=== PATIENT | male | born 1970 | race Caucasian/White ===

== ENCOUNTER 2018-03-01 09:11 | Inpatient (IN) | payer OTHER ==
[~2018-03-01 09:11] MED LIST: BUPI/epINEPH/KETOROLAC IU ONE; NS IV ONE; POVIDONE-IODINE 20 ML in SODIUM CL IRRIG SOLUTION 500 ML IRR ONE; ROPIVACAINE 0.2% 80 MG, EPINEPHrine 0.2 MG, KETOROLAC TROMETHAMINE 30 MG in SYRINGE 0 ML IU ONE; TRANEXAMIC ACID IV ONE
[2018-03-01] MEDS ORDERED: ceFAZolin 2 GM/SWFI 2 GM/20 ML SYR IVP ONE (09:50)
[2018-03-01] MEDS ORDERED: FAMOTIDINE 20 MG TAB PO ONE (09:50)
[2018-03-01] MEDS ORDERED: GABAPENTIN 300 MG CAP PO ONE (09:50)
[2018-03-01] MEDS ORDERED: DEXAMETHASONE 4 MG/ML VIAL IVP ONE (09:50)
[2018-03-01] MEDS ORDERED: ACETAMINOPHEN 325 MG TAB PO ONE (09:50)
[2018-03-01] MEDS ORDERED: ONDANSETRON 4 MG/2 ML VIAL IVP ONE (09:50)
[2018-03-01] MEDS ORDERED: LR 1,000 ML IV ONE (09:51)
[2018-03-01] MEDS ORDERED: LIDOCAINE 1% 2 ML INJ ID PRN (09:51)
[2018-03-01] MEDS ORDERED: ceFAZolin 1 GM/5 ML SYR ONE (10:33)
--- NOTE | 2018-03-01 12:06 | PDHPUP ---
History & Physical Update H&P update statement: This history and physical update is based on an assessment of the patient which was completed after admission or registration (within 24 hours), but prior to the surgery/procedure. H&P update: H&P reviewed & patient examined
[2018-03-01] MEDS ORDERED: MIDAZOLAM 2 MG/2 ML VIAL IVP ONE (12:27)
--- NOTE | 2018-03-01 12:27 | PDANEPAE ---
ANE History of Present Illness left hip OA ANE Past Medical History - Cardiovascular History Hx Hypertension: No Hx Arrhythmias: No Hx Chest Pain: No Hx Coronary Artery / Peripheral Vascular Disease: No Hx CHF / Valvular Disease: No Hx Palpitations: No - Pulmonary History Hx COPD: No Hx Asthma/Reactive Airway Disease: No Hx Recent Upper Respiratory Infection: No Hx Oxygen in Use at Home: No Hx Sleep Apnea: No Sleep Apnea Screening Result - Last Documented: Negative - Neurologic History Hx Cerebrovascular Accident: No Hx Seizures: No Hx Dementia: No - Endocrine History Hx Diabetes: No Hypothyroid: Yes - Renal History Hx Renal Disorders: No - Liver History Hx Hepatic Disorders: No - Neurological & Psychiatric Hx Hx Neurological and Psychiatric Disorders: Yes Neurological / Psychiatric History Comment: Left thumb numb - Cancer History Hx Cancer: No - Congenital Disorder History Hx Congenital Disorders: No - GI History Hx Gastrointestinal Disorders: No - Other Health History Other Health History: none - Chronic Pain History Chronic Pain: Yes (bilat condomalasia) - Surgical History Prior Surgeries: R SHOULDER 03/07 ANE Review of Systems Review of systems is: negative Review of Systems: - Exercise capacity Exercise capacity: >=4 METS METS (RN): 6 METS ANE Patient History - Allergies Allergies/Adverse Reactions: No Known Allergies Allergy (Verified 02/10/18 15:38) - Home Medications Home Medications: Herbals/Supplements -Info Only 1 ea PO DAILY 02/07/18 [Last Taken 02/22/18] Levothyroxine [Synthroid 125 mcg (*)] 125 mcg PO DAILY06 02/07/18 [Last Taken 01:00] Multivitamins [Multivitamin (*)] 1 each PO DAILY 02/07/18 [Last Taken 02/22/18] - NPO status NPO Status: no food or drink >8 hours NPO Since - Liquids (Date): 03/01/18 NPO Since - Liquids (Time): 06:45 NPO Since - Solids (Date): 02/28/18 NPO Since - Solids (Time): 18:00 - Anes Hx Anes Hx: no prior problems Hx Anesthesia Complications (with details): pain in LB following epidural - Smoking Hx Smoking Status: Never smoked - Alcohol Use Alcohol Use: Occasionally - Family Anes Hx Family Anes Hx: none Family Hx Anesthesia Complications: NONE ANE Labs/Vital Signs - Vital Signs Vital Signs: reviewed preoperatively; see RN documention for details Blood Pressure: 132/89 Heart Rate: 62 Respiratory Rate: 16 O2 Sat (%): 98 Height: 172.72 cm Weight: 77.111 kg ANE Physical Exam - Airway Neck exam: FROM Mallampati Score: Class 2 Mouth exam: normal dental/mouth exam - Pulmonary Pulmonary: no respiratory distress - Cardiovascular Cardiovascular: regular rate and rhythym - ASA Status ASA Status: II ANE Anesthesia Plan Anesthesia Plan: spinal
[2018-03-01] MEDS ORDERED: MIDAZOLAM 2 MG/2 ML VIAL ONE (12:38)
[2018-03-01] MEDS ORDERED: BUPIVACAINE 0.5% 30 ML SDV ONE (12:41)
[2018-03-01] MEDS ORDERED: PROPOFOL/EMULSION 500 MG/50 ML BOTTLE IV ONE ×2 (12:42→13:34)
[2018-03-01] MEDS ORDERED: LIDOCAINE 2% 5 ML SDV ONE (12:42)
[2018-03-01] MEDS ORDERED: fentaNYL 100 MCG/2 ML INJ ONE ×2 (13:06→13:18)
[2018-03-01] MEDS ORDERED: PROPOFOL 200 MG/20 ML VIAL ONE (14:44)
--- NOTE | 2018-03-01 14:45 | POSTOPPROG ---
Post Op Note Date of Operation: 03/01/18 Surgeon: Tyron Roth Finished Cloth Examiner: Carolina/Patrizia/Milan Anesthesiologist: Dr. Enrrique Mallory Anesthesia: IV Sedation, Spinal Post-op Diagnosis: Left hip degenerative arthritis Procedure: Left hip [place] hip resurfacing arthroplasty Inf/Abcess present in the surg proc area at time of surgery?: No EBL: [id number]
[2018-03-01] MEDS ORDERED: LACTULOSE 20 GM/30 ML UDCUP PO PRN (14:56)
[2018-03-01] MEDS ORDERED: TEMAZEPAM 15 MG CAP PO PRN (14:56)
[2018-03-01] MEDS ORDERED: BISACODYL 10 MG SUPP PR PRN (14:56)
[2018-03-01] MEDS ORDERED: ONDANSETRON DISINTEGRATING 4 MG TAB PO PRN (14:56)
[2018-03-01] MEDS ORDERED: diphenhydrAMINE 25 MG CAP PO PRN (14:56)
[2018-03-01] MEDS ORDERED: NS 500 ML IV PRN (14:56)
[2018-03-01] MEDS ORDERED: METOCLOPRAMIDE 10 MG/2 ML VIAL IVP PRN (14:56)
[2018-03-01] MEDS ORDERED: DIPHENOXYLATE/ATROPINE LOMOTIL 1 TAB PO PRN (14:56)
[2018-03-01] MEDS ORDERED: PROMETHAZINE HCL 25 MG/ML INJ IVP PRN ×2 (14:56→14:58)
[2018-03-01] MEDS ORDERED: CYCLOBENZAPRINE 10 MG TAB PO PRN (14:56)
[2018-03-01] MEDS ORDERED: ONDANSETRON 4 MG/2 ML VIAL IVP PRN ×2 (14:56→14:58)
[2018-03-01] MEDS ORDERED: POLYETHYLENE GLYCOL 3350 17 GM PKT PO PRN (14:56)
[2018-03-01] MEDS ORDERED: MAGNESIUM HYDROXIDE 30 ML UDCUP PO PRN (14:56)
[2018-03-01] MEDS ORDERED: PROMETHAZINE HCL 25 MG SUPPR PR PRN (14:56)
[2018-03-01] MEDS ORDERED: oxyCODONE IR 5 MG TAB PO PRN (14:58)
[2018-03-01] MEDS ORDERED: fentaNYL 100 MCG/2 ML INJ IVP PRN (14:58)
[2018-03-01] MEDS ORDERED: MEPERIDINE 25 MG/ML SYR IVP PRN (14:58)
[2018-03-01] MEDS ORDERED: HYDROCODONE/APAP 5/325 TAB PO PRN (14:58)
[2018-03-01] MEDS ORDERED: NALOXONE HCL 0.4 MG/ML INJ IVP PRN (14:58)
[2018-03-01] MEDS ORDERED: HYDROmorphONE/DILAUDID 1 MG/ML INJ IVP PRN (14:58)
[2018-03-01] MEDS ORDERED: DIAZEPAM 5 MG/ML 1 ML SYR IVP PRN (14:58)
[2018-03-01] MEDS ORDERED: ACETAMINOPHEN 500 MG TAB PO PRN (14:58)
[2018-03-01] MEDS ORDERED: ALBUTEROL 3 ML DEYVIAL IH PRN (14:58)
[2018-03-01] MEDS ORDERED: LR 1,000 ML IV SCH (15:00)
--- NOTE | 2018-03-01 15:00 | POSTANESTH ---
Post Anesthetic Evaluation Cardiovascular Status: Normal, Stable Respiratory Status: Normal, Stable Level of Consciousness/Mental Status: Can Participate in Eval Pain Control: Adequate, Prn Tx Ordered Nausea/Vomiting Control: Adequate, Prn Tx Ordered Complications Possibly Related to Anesthesia: None Noted
--- NOTE | 2018-03-01 15:32 | GOP ---
[f rep st] OPERATIVE REPORT DATE OF OPERATION: 03/01/2018 SURGEON: Tyron Roth MD PUPPY TRAINER: Steven Figueroa [facility]. Don Acharya MD. Juan Yates, PAC. ANESTHESIA: Combination of Marcaine, spinal, and IV sedation. ANESTHESIOLOGIST: Enrrique Mallory MD. PREOPERATIVE DIAGNOSIS: Left hip, degenerative arthritis. POSTOPERATIVE DIAGNOSIS: Left hip, degenerative arthritis. PROCEDURE PERFORMED: A left hip [place] hip-resurfacing arthroplasty. FINDINGS: DESCRIPTION OF PROCEDURE: The patient was given 2 g of IV Ancef within 60 minutes of surgery. He al so received IV tranexamic acid at a dose of 20 mg/kg. He was placed on the operating room table and given spinal anesthesia with Marcaine by Dr. Mallory. He was then placed supine and given IV sedati on. A Contreras catheter was not used. He wore a compressive stocking and SCD on the nonoperative leg. He was rolled to the right lateral decubitus position. An axillary roll was used, and all pressure points were padded. The position was secured with the pegboard table attachment. I was careful to l ock his pelvis in a vertical position. His perineum was isolated with plastic adhesive drapes. His left hip and left lower extremity were prepped with ChloraPrep. They were draped free using sterile sheets, stockinette, and Ioban plastic drapes. The World Health Organization time-out was performed to verify the correct patient identity and the correct surgical side and site. The [place] time-out was also performed. I made a 6-inch straight oblique posterolateral hip skin incision. The subcutaneous tissues were sha rply divided and hemostasis was obtained using electrocautery. His fascia clint was identified and sp lit along the axis of its fibers. I then curved posteriorly and proximally, and split the fascia of the gluteus eva and bluntly split the muscle fibers in line with their orientation. His sciatic nerve was identified and protected throughout the procedure. The Charnley self-retaining retractor w as inserted. The external rotators and the posterior hip capsule were divided as separate layers at the base of the femoral neck, tagged, and reflected posteriorly. The gluteus eva tendon was divided and tagged in order to improve exposure and release tension on the sciatic nerve. His hip was dislocated posteriorly. I used a sizing gauge to check the diameter of the neck and concluded that 50 mm was the proper head size. I performed a complete circumferenti al capsulotomy. I was able to retract the femoral head anteriorly and superiorly and hold it out of place with appropriate retractors. The remnant of his damaged labrum was excised. His acetabulum wa s reamed sequentially up to 56 mm. I selected the Rickie monoblock porous-coated acetabular comp onent with an outside diameter of 56 mm. This was firmly impacted and was a very tight fit. I was c areful to determine proper inclination and anteversion. I used the transverse acetabular ligament an d other acetabular bony landmarks to help me properly orient the cup. I was careful to leave a good lip of bone and capsule extending beyond the anterior-inferior lip of the metal cup. I then returned to preparation of the femoral head. Using appropriate jigs and guides, I inserted a guide pin into the femoral head and neck. I was careful to position in such a way there would be no notching of the neck. The large sterile metal goniometer was used to check the neck-shaft angle. I reamed over the guide pin and inserted the reaming guide. I then used the cylindrical reamer down to the head and neck junction. This was followed by the flat reamer and the chamfer reamer. The head was sized for 50 mm. There was no impingement or damage to the neck. I drilled a small hole in the lesser trochanter and inserted a suction cannula to create negative pressure in the medullary canal. Small holes were drilled on the flat and chamfer surfaces of the prepared head for cement anchors. The head was thoroughly cleaned with the pulsating lavage irrigation and carefully dried. I used a C arboJet device to blow dry the cancellous surfaces. A single batch of Simplex cement with tobramycin was mixed. At about 50 seconds, I poured the liquid cement into the head component, inserted it ont o the prepared femoral head, and impacted it into place. Excess cement was removed before it hardene d. The acetabulum was irrigated, cleaned, and inspected, and the hip was reduced. Stability and range o f motion were checked. I placed my finger along the anterior aspect of the acetabular component and flexed the hip to 110 degrees. There was no anterior impingement. The suction cannula in the lesser trochanter was removed. The wound was thoroughly irrigated with a dilute Betadine solution. 40 mL of the joint anesthetic cocktail were injected into the capsule, the deep musculature, and the subcut aneous tissues along the skin edges. His sciatic nerve was reinspected and looked unharmed. The external rotators and the posterior hip capsule were repaired in separate layers with #2 FiberWir e sutures through drill holes in the greater trochanter. The gluteus eva tendon was repaired wit h two interrupted [id number] #2 FiberWire sutures. His fascia clint was repaired first with 2 in terrupted [id number]-[id number] #2 FiberWire sutures followed by a running #2 barbed Ethicon Stratafix PDO suture. The subcutaneous tissues were closed with a running 0 barbed Ethicon Stratafix Monoderm sutu re. The skin was closed with a running 3-0 barbed Ethicon Stratafix Monoderm subcuticular suture. T he skin edges were reapproximated and sealed with Dermabond glue. The wound was covered with a large sterile Mepilex water-proof dressing. The estimated blood loss was about 400 mL. I used the TalkSession hip resurfacing system. The acetabular component was 56 mm in diameter and press-fit. The femor al head was 50 mm and cemented. He was awakened from anesthesia and rolled to the supine position on his hospital [facility]. A long-leg compressive stocking and SCD were applied to the operative leg. He wore a stocking and SCD on the o pposite leg during the procedure. An abduction pillow was placed between his knees. He was awakened from anesthesia, transferred to his hospital [facility], and taken to PACU in satisfactory condition. T here were no recognized intraoperative complications. The sponge and needle count were correct on [address] Steven Figueroa, Dr. Don Acharya, and Rosalino Yates acted as surgical assistants. Their assistanc e was a medical necessity for safe completion of the procedure. SURGEON: Tyron Roth MD. /[id number]/MODL
[2018-03-01] MEDS: ACETAMINOPHEN 325 MG TAB PO SCH ×2 (18:11→22:40)
[2018-03-01] MEDS: KETOROLAC 30 MG/1 ML SDV IVP PRN (19:43)
[2018-03-01] MEDS: TRANEXAMIC ACID 650 MG TAB PO SCH (19:46)
[2018-03-01] MEDS: oxyCODONE IR 5 MG TAB PO PRN ×2 (20:53→22:41)
[2018-03-01] MEDS: SENNOSIDES/DOCUSATE SODIUM TAB PO SCH (20:53)
[2018-03-01] MEDS: ASPIRIN 325 MG TAB PO SCH (20:54)
[2018-03-01] MEDS: FAMOTIDINE 20 MG TAB PO SCH (20:54)
[2018-03-01] MEDS: ceFAZolin 2 GM/SWFI 2 GM/20 ML SYR IVP SCH (20:55)
[2018-03-02] MEDS: oxyCODONE IR 5 MG TAB PO PRN ×3 (01:58→12:28)
[2018-03-02] MEDS: traMADol 50 MG TAB PO PRN ×2 (04:06→11:01)
[2018-03-02] MEDS: KETOROLAC 30 MG/1 ML SDV IVP PRN ×2 (04:09→11:01)
[2018-03-02] MEDS: TRANEXAMIC ACID 650 MG TAB PO SCH ×2 (05:26→12:27)
[2018-03-02] MEDS: ceFAZolin 2 GM/SWFI 2 GM/20 ML SYR IVP SCH (05:30)
[2018-03-02] MEDS: ACETAMINOPHEN 325 MG TAB PO SCH ×2 (05:31→12:27)
[2018-03-02] MEDS ORDERED: LEVOTHYROXINE 125 MCG TAB PO SCH (06:00)
--- NOTE | 2018-03-02 08:36 | PDMN ---
Medical Necessity Medical necessity: S565 hip resurfacing 2 days: L hip [place] hip resurfacing arthroplasty
[2018-03-02] MEDS: ASPIRIN 325 MG TAB PO SCH (09:16)
[2018-03-02] MEDS: SENNOSIDES/DOCUSATE SODIUM TAB PO SCH (09:16)
[2018-03-02] MEDS: FAMOTIDINE 20 MG TAB PO SCH (09:16)
--- NOTE | 2018-03-02 09:41 | SOAPPROG ---
SOAP Progress Note Assessment/Plan: Assessment: Afebrile. Awake and alert. Has been walking in room. Voiding well. H/H is good. Sciatic nerve intact. Films look good. Plan:Up with PT today. Home to [place] later today. 03/02/18 09:40 Objective: Vital Signs Temp Pulse Resp BP Pulse Ox 36.7 C 57 L 12 95/58 L 93 03/02/18 07:34 03/02/18 07:34 03/02/18 07:34 03/02/18 07:34 03/02/18 07:34 Laboratory Results 03/02/18 04:21 03/01/18 03/02/18 03/03/18 05:59 05:59 05:59 Intake Total 1660 Output Total 2300 Balance -640 ICD10 Worksheet Patient Problems: Problems Problem Status Onset Osteoarthritis of left hip Acute
--- NOTE | 2018-03-02 10:01 | GDS ---
[f rep st] DISCHARGE SUMMARY ADMISSION DIAGNOSIS: Left hip advanced degenerative arthritis. DISCHARGE DIAGNOSIS: Left hip advanced degenerative arthritis. OPERATIONS PERFORMED: 03/01/2018, a left hip [place] hip resurfacing arthroplasty. POSTOPERATIVE COMPLICATIONS: None. CONDITION ON DISCHARGE: Improved. DESCRIPTION OF HOSPITAL COURSE: The patient was admitted to the hospital the morning of surgery. Hi s admission CBC was normal. The same day, under a combination of Marcaine, spinal, and IV sedation, he underwent a left hip [place] hip resurfacing arthroplasty. Postoperatively, he was treated wit h multimodal DVT prophylaxis, including aspirin and early mobilization. On the first postoperative d ay, his hemoglobin and hematocrit were 13.4 and 38.5. He was seen by Physical Therapy and made good progress with ambulation and stairs. By the time of discharge, he was afebrile, his wound was dry, a nd he was independent walking. DISPOSITION: Patient is discharged to his home in [place]. He may progress to full weightbearing on t he left as tolerated. Use MONICA stockings for 1 week. Use an abduction pillow in bed for 3 weeks. Co ntinue aspirin 325 mg p.o. daily for 21 days. He has prescriptions for oxycodone, tramadol, and Makeda brex for pain. I will see him back in the office in 3 weeks. If there are any problems, he is to ca ll me at the office. Copy requested to: Nicik CHAHAL /[id number]/MODL
[2018-03-02 12:17] VITALS: BP 125/80
--- NOTE | 2018-03-02 12:18 | ASMTCMCOM ---
CM Note CM Note Notes: PT rec home/outpatient. Pt medically stable for d/c with family support, no CM d/c needs identified. Date Signed: 03/02/2018 12:17 PM Electronically Signed By:AIDE Steward
== END 2018-03-02 12:53 | disposition home or self-care (01) | DRG 470 ==
LOC: F3N 09:11
PROVIDERS: ADMIT Orthopaedic Surgery; ATTEND Orthopaedic Surgery
PROC: 0SR Lower Joints, Replacement (ICD-10-PCS; principal; 2018-03-01 11:15)
DX: M16.12 Unilateral primary osteoarthritis, left hip (principal); E03.9 Hypothyroidism, unspecified
CPT/HCPCS: 97161-GP; 97165-GO; C1713; J0171; J0690; J1100; J1885; J2250; J2270; J2405; J2704; J3010

== ENCOUNTER → 2018-09-15 | Outpatient (CLI) | payer OTHER ==
[~2018-09-15] MED LIST changes: -BUPI/epINEPH/KETOROLAC IU ONE; +BUPIVACAINE 0.25% 30 ML SDV ONE; +LIDOCAINE 1% 300 MG/30 ML SDV ONE; -NS IV ONE; -POVIDONE-IODINE 20 ML in SODIUM CL IRRIG SOLUTION 500 ML IRR ONE; -ROPIVACAINE 0.2% 80 MG, EPINEPHrine 0.2 MG, KETOROLAC TROMETHAMINE 30 MG in SYRINGE 0 ML IU ONE; -TRANEXAMIC ACID IV ONE
== END ==
LOC: FIMAGING 12:57
PROVIDERS: ATTEND Orthopaedic Surgery
PROC: 0S9B3ZZ Drainage of Left Hip Joint, Percutaneous Approach (ICD-10-PCS; principal; 2018-09-15)
DX: G89.18 Other acute postprocedural pain (principal); Z96.642 Presence of left artificial hip joint

== ENCOUNTER → 2018-10-06 | Outpatient (CLI) | payer OTHER ==
[~2018-10-06] MED LIST changes: +DEPO METHYLPREDNISOLONE 40 MG/ML SDV ONE
== END ==
LOC: FIMAGING 09:10
PROVIDERS: ATTEND Orthopaedic Surgery
DX: M16.12 Unilateral primary osteoarthritis, left hip (principal)
CPT/HCPCS: J1030

== ENCOUNTER 2019-01-10 08:00 | Inpatient (IN) | payer OTHER ==
--- NOTE | 2019-01-09 17:11 | GHP ---
[f rep st] PREOP HISTORY AND PHYSICAL DATE OF ADMISSION: 01/10/2019 PROBLEM: Failed left hip resurfacing arthroplasty. DESCRIPTION OF HOSPITAL COURSE: The patient is a 48-year-old male who will be [facility] 10, [facility], for a planned conversion of his left hip resurfacing arthroplasty to a total hip arthroplasty. The patient originally had hip resurfacing surgery on March 01, 2018. After abou t 6 months, the patient had increased pain and swelling with elevated cobalt and chromium levels. An MRI also showed extensive fluid collection around the hip, suggesting that the soft tissues were bozena cting to the metal ions. Because of his persistent pain and swelling, the patient has elected to pro ceed with the conversion. His health remains unchanged since his last preoperative visit and surgery in February of 2018. PAST MEDICAL HISTORY: Pertinent for polymyalgia rheumatica, hypertension, thyroid disorder, and arth ritis. No history of DVT, PE, hepatitis, or CAD. MEDICATIONS: Levothyroxine 125 mcg daily and prednisone variable dose daily. MEDICATION ALLERGIES: No known drug allergies. SOCIAL HISTORY: The patient is . He lives in [place], [place] and is a electrical solderer at [employer]. His activities include cycling, walking, hiking, skiing, snowboarding, strength tra ining and Pilates. He is and a nonsmoker. FAMILY HISTORY: Noncontributory. PHYSICAL EXAMINATION: VITALS: Height 5 feet 8 inches tall, weight 180 pounds, BMI 27.4. GENERAL: He is an otherwise healthy-appearing 48-year-old male. HEENT: Head is normocephalic, atraumatic. Eyes are PERRLA. Conjunctivae and sclerae are clear. Mo uth, he has good oral hygiene without any loose teeth. LUNGS: Clear. HEART: Regular rate and rhyt hm without murmurs, gallops, or rubs. EXTREMITIES: Pertinent findings are limited to the patient's left hip. He has a well-healed surgical incision. The surrounding soft tissues are mildly swollen w ithout erythema or ecchymosis. No drainage. He has full hip extension, 130 degrees of hip flexion, 45 degrees of external rotation, and 20 degrees of internal rotation. 50 degrees of abduction. DIAGNOSTIC IMAGING: Recent x-rays of the patient's left hip do not show any bony or structural abnor malities. An MRI from August of 2018 shows a localized fluid collection around his trochanteric bur sa. IMPRESSION: Failed left hip [place] hip resurfacing. PLAN: The plan will be for the patient to undergo a left hip revision surgery with conversion of the femoral component. The preoperative plan is to leave his acetabular component as is. The surgery h as been described to the patient including the risks, benefits, and expectations. He understands the risk of DVT, PE, sciatic nerve injury, heart attack, or possibly even . All his questions have been answered. He consents to surgery here in the office today. Copy requested to: KOSTA /[id number]/MODL
[~2019-01-10 08:00] MED LIST changes: -BUPIVACAINE 0.25% 30 ML SDV ONE; -DEPO METHYLPREDNISOLONE 40 MG/ML SDV ONE; -LIDOCAINE 1% 300 MG/30 ML SDV ONE; +POVIDONE-IODINE 20 ML in SODIUM CL IRRIG SOLUTION 500 ML IRR ONE; +ROPIVACAINE 0.2% 80 MG, EPINEPHrine 0.2 MG, KETOROLAC TROMETHAMINE 30 MG in SYRINGE 0 ML IU ONE; +TRANEXAMIC ACID 1,000 MG in NS 100 ML IV ONE; +TRANEXAMIC ACID 3,000 MG in NS (SYRINGE) 50 ML IRR ONE; +ceFAZolin 2 GM/DEXTROSE 100 ML IV ONE
[2019-01-10] MEDS ORDERED: DEXAMETHASONE 4 MG/ML VIAL IVP ONE (08:13)
[2019-01-10] MEDS ORDERED: ACETAMINOPHEN 325 MG TAB PO ONE (08:13)
[2019-01-10] MEDS ORDERED: ONDANSETRON 4 MG/2 ML VIAL IVP ONE (08:13)
[2019-01-10] MEDS ORDERED: GABAPENTIN 300 MG CAP PO ONE (08:13)
[2019-01-10] MEDS ORDERED: FAMOTIDINE 20 MG TAB PO ONE (08:13)
[2019-01-10] MEDS ORDERED: LR 1,000 ML IV ONE (08:14)
[2019-01-10] MEDS ORDERED: LIDOCAINE 1% 2 ML INJ ID PRN (08:14)
[2019-01-10] MEDS ORDERED: TRANEXAMIC ACID 3,000 MG/50 ML BAG IRR ONE (08:42)
[2019-01-10] MEDS ORDERED: ceFAZolin 1 GM/5 ML SYR ONE (08:42)
--- NOTE | 2019-01-10 09:20 | POSTOPPROG ---
Post Op Note Date of Operation: 01/10/19 Surgeon: Tyron Roth Certified Medical Dosimetrist: Vandana Anesthesiologist: Marilyn Anesthesia: IV Sedation, Spinal Post-op Diagnosis: Right hip severe degenerative arthritis Procedure: Right hip [place] hip resurfacing arthroplasty Inf/Abcess present in the surg proc area at time of surgery?: No EBL: [id number]
[2019-01-10] MEDS ORDERED: MIDAZOLAM 2 MG/2 ML VIAL IVP ONE (09:46)
--- NOTE | 2019-01-10 09:46 | PDANEPAE ---
ANE History of Present Illness left hip pain, here for LTHA ANE Past Medical History - Cardiovascular History Hx Hypertension: No Hx Arrhythmias: No Hx Chest Pain: No Hx Coronary Artery / Peripheral Vascular Disease: No Hx CHF / Valvular Disease: No Hx Palpitations: No - Pulmonary History Hx COPD: No Hx Asthma/Reactive Airway Disease: No Hx Recent Upper Respiratory Infection: No Hx Oxygen in Use at Home: No Hx Sleep Apnea: No Sleep Apnea Screening Result - Last Documented: Negative - Neurologic History Hx Cerebrovascular Accident: No Hx Seizures: No Hx Dementia: No - Endocrine History Hx Diabetes: No Endocrine History Comment: KONSTANTIN'S - Renal History Hx Renal Disorders: No - Liver History Hx Hepatic Disorders: No - Neurological & Psychiatric Hx Hx Neurological and Psychiatric Disorders: No Neurological / Psychiatric History Comment: Left thumb numb - Cancer History Hx Cancer: No - Congenital Disorder History Hx Congenital Disorders: No - GI History Hx Gastrointestinal Disorders: No - Other Health History Other Health History: PMR W/HIP PAIN - Chronic Pain History Chronic Pain: No - Surgical History Prior Surgeries: L HIP MARILYN. JED SHOULDER 03/07. R WRIST. JED KNEES ANE Review of Systems Review of Systems: - Exercise capacity METS (RN): 5 METS ANE Patient History - Allergies Allergies/Adverse Reactions: No Known Allergies Allergy (Verified 02/10/18 15:38) - Home Medications Home Medications: Herbals/Supplements -Info Only 1 ea PO DAILY 02/07/18 [Last Taken 02/22/18] Levothyroxine [Synthroid 125 mcg (*)] 125 mcg PO DAILY06 02/07/18 [Last Taken 01:00] Multivitamins [Multivitamin (*)] 1 each PO DAILY 02/07/18 [Last Taken 02/22/18] predniSONE 5 mg PO DAILY 12/22/18 [Last Taken Unknown] Naproxen Sodium [Aleve 220 MG (*)] 220 mg PO BID PRN 12/29/18 [Last Taken Unknown] - NPO status NPO Since - Liquids (Date): 01/10/19 NPO Since - Liquids (Time): 06:30 NPO Since - Solids (Date): 01/09/19 NPO Since - Solids (Time): 19:30 - Smoking Hx Smoking Status: Never smoked - Family Anes Hx Family Hx Anesthesia Complications: NONE ANE Labs/Vital Signs - Vital Signs Blood Pressure: 123/77 Heart Rate: 71 Respiratory Rate: 18 O2 Sat (%): 99 Height: 172.72 cm Weight: 77.111 kg ANE Physical Exam - Airway Neck exam: FROM Mallampati Score: Class 2 Mouth exam: normal dental/mouth exam - Pulmonary Pulmonary: no respiratory distress, no rales or rhonchi - Cardiovascular Cardiovascular: regular rate and rhythym, no murmur, rub, or gallop - ASA Status ASA Status: II ANE Anesthesia Plan Anesthesia Plan: GA with mask, spinal Total IV Anesthesia: Yes
[2019-01-10] MEDS ORDERED: MIDAZOLAM 2 MG/2 ML VIAL ONE (09:47)
[2019-01-10] MEDS ORDERED: LIDOCAINE 2% 100 MG/5 ML SYR ONE (09:52)
[2019-01-10] MEDS ORDERED: DEXAMETHASONE 4 MG/ML VIAL ONE (09:52)
[2019-01-10] MEDS ORDERED: BUPIVACAINE/DEXTROSE 7.5MG/ML 2 ML SPINAL AMP SP ONE (09:52)
[2019-01-10] MEDS ORDERED: ONDANSETRON 4 MG/2 ML VIAL ONE (09:52)
[2019-01-10] MEDS ORDERED: PROPOFOL/EMULSION 500 MG/50 ML BOTTLE IV ONE ×2 (09:53→10:59)
[2019-01-10] MEDS ORDERED: fentaNYL 100 MCG/2 ML INJ ONE (09:53)
[2019-01-10] MEDS ORDERED: PROPOFOL 200 MG/20 ML VIAL ONE (12:09)
--- NOTE | 2019-01-10 12:24 | POSTOPPROG ---
Post Op Note Date of Operation: 01/10/19 Surgeon: Tyron Roth Ski Binding Fitter And Repairer: Vandana Anesthesiologist: Marilyn Anesthesia: IV Sedation, Spinal Post-op Diagnosis: Failed BHR Procedure: Conversion of BHR to MARILYN Inf/Abcess present in the surg proc area at time of surgery?: No EBL: 100-500
[2019-01-10] MEDS ORDERED: oxyCODONE IR 5 MG TAB PO PRN ×2 (12:29→12:39)
[2019-01-10] MEDS ORDERED: DIAZEPAM 5 MG/ML 1 ML SYR IVP PRN (12:29)
[2019-01-10] MEDS ORDERED: ACETAMINOPHEN 500 MG TAB PO PRN (12:29)
[2019-01-10] MEDS ORDERED: fentaNYL 100 MCG/2 ML INJ IVP PRN (12:29)
[2019-01-10] MEDS ORDERED: MEPERIDINE 25 MG/0.5 ML AMP IVP PRN (12:29)
[2019-01-10] MEDS ORDERED: LR 500 ML IV PRN (12:29)
[2019-01-10] MEDS ORDERED: NALOXONE HCL 0.4 MG/ML INJ IVP PRN (12:29)
[2019-01-10] MEDS ORDERED: HYDROmorphONE/DILAUDID 2 MG/ML INJ IVP PRN (12:29)
[2019-01-10] MEDS ORDERED: CYCLOBENZAPRINE 10 MG TAB PO PRN (12:39)
[2019-01-10] MEDS ORDERED: TEMAZEPAM 15 MG CAP PO PRN (12:39)
[2019-01-10] MEDS ORDERED: BISACODYL 10 MG SUPP PR PRN (12:39)
[2019-01-10] MEDS ORDERED: METOCLOPRAMIDE 10 MG/2 ML VIAL IVP PRN (12:39)
[2019-01-10] MEDS ORDERED: DIPHENOXYLATE/ATROPINE LOMOTIL 1 TAB PO PRN (12:39)
[2019-01-10] MEDS ORDERED: MAGNESIUM HYDROXIDE 30 ML UDCUP PO PRN (12:39)
[2019-01-10] MEDS ORDERED: diphenhydrAMINE 25 MG CAP PO PRN (12:39)
[2019-01-10] MEDS ORDERED: POLYETHYLENE GLYCOL 3350 17 GM PKT PO PRN (12:39)
[2019-01-10] MEDS ORDERED: LACTULOSE 20 GM/30 ML UDCUP PO PRN (12:39)
[2019-01-10] MEDS ORDERED: traMADol 50 MG TAB PO PRN (12:39)
[2019-01-10] MEDS ORDERED: ONDANSETRON 4 MG/2 ML VIAL IVP PRN (12:39)
[2019-01-10] MEDS ORDERED: PROMETHAZINE HCL 25 MG SUPPR PR PRN (12:39)
[2019-01-10] MEDS ORDERED: NS 500 ML IV PRN (12:39)
[2019-01-10] MEDS ORDERED: ONDANSETRON DISINTEGRATING 4 MG TAB PO PRN (12:39)
[2019-01-10] MEDS ORDERED: PROMETHAZINE HCL 25 MG/ML INJ IVP PRN (12:39)
[2019-01-10] MEDS ORDERED: LR 1,000 ML IV SCH (13:00)
--- NOTE | 2019-01-10 13:18 | GOP ---
[f rep st] OPERATIVE REPORT DATE OF OPERATION: 01/10/2019 SURGEON: Tyron Roth MD RN ANESTHETIST: Steven Figueroa CFA, and Rosalino Yates PA-C. ANESTHESIA: Combination of Marcaine spinal and IV sedation. ANESTHESIOLOGIST: Dr. Kristen Sanders. 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 POSTOPERATIVE DIAGNOSIS: Failed left hip Rickie hip resurfacing arthroplasty with increased flui d and pain. PROCEDURE PERFORMED: Conversion of left [place] hip resurfacing to a left total hip arthroplasty, dual mobility, ceramic on highly crosslinked polyethylene. FINDINGS: ESTIMATED BLOOD LOSS: About 400 mL. DESCRIPTION OF PROCEDURE: The patient was given 2 g of IV Ancef preoperatively within 60 minutes of surgery. He also received 1000 mg of IV tranexamic acid preoperatively. He was placed on the operat ing room table and given spinal anesthesia with Marcaine by Dr. Sanders. He was then placed supine and given IV sedation. A Contreras catheter was not used. He wore a MONICA stocking and SCD on the nonoperati ve leg. He was rolled to the right lateral decubitus position. The position was secured with the pe gboard table attachment. An axillary roll was used, and all pressure points were carefully padded. I was careful to lock his pelvis in a rigid vertical position. His perineum was isolated with plasti c adhesive drapes. The left hip and left lower extremity were prepped with ChloraPrep. They were dr aped free using sterile sheets, stockinette, and Ioban plastic adhesive drape. The [employer] time-out was performed to verify the correct surgical side and site and the correct patient identity. The [employer] time-out was also performed. I made a 6-inch straight ob lique posterolateral hip skin incision through his pre-existing scar. Subcutaneous tissues were sergio ply divided, and hemostasis was obtained using electrocautery. The fascia clint was identified and sp lit along the axis of its fibers. As soon as I entered the trochanteric bursal area, there was spont aneous egress of 25 or 30 cc of thick clear yellow fluid. I curved posteriorly and proximally and sp lit the fascia of gluteus eva and bluntly split the muscle fibers in line with their orientation. The Charnley self-retaining retractor was inserted. His sciatic nerve was imbedded in scar tissue posterior to the trochanter. I was careful to avoid that area, but I did not make any specific effor t to try to identify the nerve. There was a defect in the posterior capsule. That defect was filled with some yellow fibrinoid material. There was no brown or black discoloration of the soft tissues. No disruption of the gluteus medius. The FiberWire sutures from the previous external rotator repa ir were removed. An 1/8-inch Steinmann pin was inserted vertically into the ilium, superior to the a cetabulum. This was used as a retractor. The [place] resurfaced head was dislocated. I used a combination of the oscillating saw and reciprocal saw to osteotomize the neck at the appropr iate level and inclination. I finished the osteotomy with an osteotome. The acetabulum was inspected. It looked normal. No evidence of wear. Did not appear loose. I used a bone tamp and lightly tapped on the edge of the acetabular component, and it appeared to be very s olid. There was no significant synovitis within the joint capsule. I then prepared the femur. The canal was opened first with the starter reamer. I then used the box chisel laterally. I hand broached sequentially up to a size 6. The size 6 Accolate II broach was us ed as a trial stem. I was careful to lateralize adequately. I then performed a series of trial reductions. We had some confusion about the package labeling for the correct size for the large polyethylene head. It took some additional research, but we finally d etermined the correct size. I selected the Dustin ADM X3 insert which was a size 28/56. This had a n outside diameter of 50 mm. The ceramic inner ball was 28 mm in diameter. I selected the 0 neck le ngth. I took an intraoperative cross-table AP pelvis x-ray. The size 6 stem looked appropriately sized and the leg length look good. The [place] Accolade II stem in a size 6 with the standard offset 132-degree neck angle was tapped se curely into place. It was a very tight fit. I then assembled the dual mobility head, inserting the 28 mm ceramic ball inside the larger polyethylene ball that had an outside diameter of 50 mm. This w as tapped securely onto the clean trunnion. The acetabulum was irrigated and cleaned with Betadine. The hip was reduced 1 final time. He had excellent anterior and posterior stability and appropriate length. 40 mL of the joint anesthetic cocktail was injected into the capsule, the deep musculature, and subcu taneous tissues around the skin edges. The joint was thoroughly irrigated 1 final time with a dilute Betadine solution. 50 mL of tranexamic acid solution was irrigated into the wound. There was no po sterior capsule or external rotator layer to close. His fascia clint was closed with 2 interrupted fi [id number] #2 FiberWire sutures, followed by a running #2 barbed Ethicon Stratafix PDO suture. Th e subcutaneous tissues were closed in layers with interrupted 2-0 Monocryl sutures, followed by a run kymberly 0 barbed Ethicon Stratafix Monoderm suture. The skin was closed with a running 3-0 barbed Ethic on Stratafix Monoderm subcuticular suture. The skin edges were reapproximated and sealed with Dermab ond glue. The wound was covered with a large Mepilex waterproof dressing. A Mepilex sacral dressing was also applied. A long-leg MONICA stocking and SCD were applied to his left lower extremity. He wore a stocking and SCD on the opposite leg during the procedure. An abduction pillow was placed between his knees. He was awakened from anesthesia and rolled to the supine position [facility] his [facility]. He was taken to PACU in satisfactory condition. There were no recognized intraoperative complications. The bone of the femoral head inside the [place] head looked healthy and undamaged. COUNT: The sponge and needle count were correct on 2 occasions. IMPLANTS: I used a Dustin Accolade II stem with standard offset and size 6. The outer ball was a R estoration ADM X3 insert, size designation of 56. However, this had a 50 mm outside diameter. Th e small head component was a Dustin Biolox Delta ceramic head with an outside diameter of 28 mm and a 0 neck length. Steven Figueroa and Rosalino Yates acted as surgical assistants. Their assistance was a medical necess ity for safe completion of the procedure. Copy requested to: Ivon Lake MD [place], [place] /[id number]/MODL
[2019-01-10] MEDS: ceFAZolin 2 GM/DEXTROSE 100 ML IV SCH ×2 (15:19→21:12)
[2019-01-10] MEDS: KETOROLAC 15 MG/1 ML SDV IVP SCH ×2 (18:44→23:51)
[2019-01-10] MEDS: ACETAMINOPHEN 325 MG TAB PO SCH ×2 (18:44→23:52)
[2019-01-10] MEDS: FAMOTIDINE 20 MG TAB PO SCH (21:12)
[2019-01-10] MEDS: ASPIRIN 325 MG TAB PO SCH (21:12)
[2019-01-10] MEDS: SENNOSIDES/DOCUSATE SODIUM TAB PO SCH (21:12)
[2019-01-11] MEDS: KETOROLAC 15 MG/1 ML SDV IVP SCH (05:30)
[2019-01-11] MEDS: ACETAMINOPHEN 325 MG TAB PO SCH (05:30)
[2019-01-11] MEDS ORDERED: LEVOTHYROXINE 125 MCG TAB PO SCH (06:00)
[2019-01-11 07:55] VITALS: BP 107/63
[2019-01-11] MEDS ORDERED: FERROUS SULFATE 325 MG TAB PO SCH (08:00)
[2019-01-11] MEDS ORDERED: predniSONE 5 MG TAB PO SCH (09:00)
--- NOTE | 2019-01-11 09:37 | SOAPPROG ---
SOAP Progress Note Assessment/Plan: Assessment: Afebrile. Moderate pain. Up and walking. Cleared by PT. H/H are good. Films look good. Sciatic nerve intact. Plan:DC today. 01/11/19 09:35 Objective: Vital Signs Temp Pulse Resp BP Pulse Ox 36.9 C 57 L 16 107/63 96 01/11/19 07:53 01/11/19 07:53 01/11/19 07:53 01/11/19 07:53 01/11/19 07:53 Microbiology 01/10/19 10:30 Gram Stain - Final Hip - Eswab Laboratory Results 01/11/19 04:43 01/10/19 01/11/19 01/12/19 05:59 05:59 05:59 Intake Total 3300 Output Total 1350 Balance 1950 ICD10 Worksheet Patient Problems: Problems Problem Status Onset Failure of total hip arthroplasty Acute Osteoarthritis of left hip Acute
[2019-01-11] MEDS: ASPIRIN 325 MG TAB PO SCH (09:50)
[2019-01-11] MEDS: SENNOSIDES/DOCUSATE SODIUM TAB PO SCH (09:51)
[2019-01-11] MEDS: FAMOTIDINE 20 MG TAB PO SCH (09:52)
--- NOTE | 2019-01-11 09:54 | GDS ---
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 DISCHARGE DIAGNOSIS: Failed left [place] hip resurfacing arthroplasty. OPERATION PERFORMED: January 10, 2019, conversion of left [place] hip resurfacing to a left tota l hip arthroplasty. POSTOPERATIVE COMPLICATIONS: None. CONDITION ON DISCHARGE: Improved. DESCRIPTION OF HOSPITAL COURSE: The patient was admitted to the hospital on the morning of surgery. His admission CBC was normal. The same day, under a combination of Marcaine, spinal, and IV sedatio n, he underwent conversion of his BHR to a total hip arthroplasty. Postoperatively, he was treated w ith multimodal DVT prophylaxis. On the first postoperative day, his hemoglobin and hematocrit were 1 3.9 and 41.6. He was seen by Physical Therapy and made rapid progress with ambulation and stairs. B y the time of discharge, he was afebrile and was independent walking. DISPOSITION: The patient is staying in a motel tonight. I will see him in the office tomorrow and t hen after that, he will drive back to his home in [place]. He may progress to full weightbearing on th e left as tolerated. Use MONICA stockings for 1 week. He will continue aspirin 325 mg p.o. daily for 2 1 days. He has prescriptions for oxycodone, tramadol, and Celebrex for pain control. I will see him in the office tomorrow. Copy requested to: vIon Mills MD [place], [place] /[id number]/MODL
--- NOTE | 2019-01-11 09:57 | ASMTLACE ---
LACE Length of stay for Answers: 2 days current admission Acuity / Level of Answers: Yes Care: Did the patient have an inpatient admission? Comorbidities - select Answers: Other Notes: HTN; Thyroid disorder all that apply # of Emergency department Answers: 0 visits in the last 6 months Score: 6 Date Signed: 01/11/2019 09:56 AM Electronically Signed By:AIDE Steward
--- NOTE | 2019-01-11 10:01 | ASMTCMCOM ---
CM Note CM Note Notes: Pt had planned OA of hip. PT and MD rec outpatient. No CM d/c needs identified. Pt to d/c to local hot and return to [place] after seeing MD tomorrow. Date Signed: 01/11/2019 10:01 AM Electronically Signed By:AIDE Steward
--- NOTE | 2019-01-14 11:03 | POSTANESTH ---
Post Anesthetic Evaluation Cardiovascular Status: Normal, Stable Respiratory Status: Normal, Stable Level of Consciousness/Mental Status: Can Participate in Eval, Mildly Sleepy, Arousable Pain Control: Adequate, Prn Tx Ordered Nausea/Vomiting Control: Adequate, Prn Tx Ordered Complications Possibly Related to Anesthesia: None Noted
== END 2019-01-11 10:51 | disposition home or self-care (01) | DRG 468 ==
LOC: F3N 08:00
PROVIDERS: ADMIT Orthopaedic Surgery; ATTEND Orthopaedic Surgery
DX: T84.84XA Pain due to internal orthopedic prosthetic devices, implants and grafts, initial encounter (principal); M16.12 Unilateral primary osteoarthritis, left hip; M35.3 Polymyalgia rheumatica; I10 Essential (primary) hypertension; E06.3 Autoimmune thyroiditis
CPT/HCPCS: 97116-GP; 97161-GP; 97165-GO; J0171; J0690; J1100; J1885; J2001; J2250; J2405; J2704; J2795; J3010; J7512